=== PATIENT | female | born 1950 | race Caucasian/White ===

== ENCOUNTER → 2016-04-28 | Outpatient (CLI) | payer OTHER ==
[~2016-04-28] MED LIST: ATEN50TA8 PO; BUPR-79 PO; CPR500 PO; KLN1 PO; PANT40TA PO; ZLF50 PO
--- NOTE | 2016-04-28 12:11 | DIAGNOSTIC IMAGING REPORT ---
CHEST CT WITHOUT CONTRAST CT DOSE: 284.18 mGy.cm HISTORY: Pulmonary nodule D80.1 Hypogammaglobulinemia TECHNIQUE: Multiaxial CT images of the chest were performed without contrast. COMPARISON: 10/13/2015 FINDINGS: Unchanged exam compared to the prior study. Nodularity right middle lobe as well as left basilar region. Unchanged. There is no evidence for new interval or progressive process. No significant mediastinal or hilar adenopathy. Stable chronic linear atelectatic change left base. Moderate degenerative changes thoracic spine. No significant upper abdominal adenopathy. Small peripheral cortical cyst of the left hepatic lobe unchanged. IMPRESSION: Unchanging scattered lower lung parenchymal nodularity. No new or interval process. Please refer to below summary of Fleischner criteria recommendations for follow-up of incidental CT nodules (Nithin Lagunas, Guidelines for management of small pulmonary nodules detected on CT scans: A statement from the Fleischner Society, Radiology 237: [phone].) Low Risk Patient: Minimal or no smoking or other known risk factors for malignancy <=4 mm: No follow-up needed. >4-6 mm: Initial follow-up CT at 12 months; if unchanged, no further follow-up. >6-8 mm: Initial follow-up CT at 6-12 months then at 18-24 months if no change. >8 mm: Follow-up CT at \R\3, 9, 24 months, or PET and/or biopsy. High Risk Patient: History of smoking or other known risk factors <=4 mm: Follow-up at 12 months; if unchanged, no further follow-up. >4-6 mm: Initial follow-up CT at 6-12 months then at 18-24 months if no change. >6-8 mm: Initial follow-up CT at 3-6 months then at 9-12 and 24 months if no change. >8 mm: Same as low risk patient. Note: Nodule size measured as average of length and width. Ground glass or partly solid nodules may require longer follow-up to exclude indolent adenocarcinoma. Electronically signed by: Viktor Broderick M.D. 04/28/2016 12:10 PM Dictated Date/Time: 04/28/2016 12:06 PM
== END | disposition home or self-care (01) ==
LOC: C.CTS 10:00
PROVIDERS: ATTEND Internal Medicine Pulmonary Disease
DX: D80.1 Nonfamilial hypogammaglobulinemia (principal); R91.8 Other nonspecific abnormal finding of lung field

== ENCOUNTER → 2017-06-15 | Outpatient (CLI) | payer OTHER ==
--- NOTE | 2017-06-15 10:32 | DIAGNOSTIC IMAGING REPORT ---
(CHEST) THORAX WITHOUT CLINICAL HISTORY: 66 years-old Female presenting with R91.1 Pulmonary nodule Apt [address]. At [facility] [place] on 06/15/17 @ 10am arrive. TECHNIQUE: Multidetector CT imaging of the chest was performed without the use of intravenous contrast. IV contrast: None. A dose lowering technique was used consistent with the principles of ALARA (as low as reasonably achievable). COMPARISON: 04/28/2016. CT DOSE (mGy.cm): The estimated cumulative dose is 408.18 mGy.cm. FINDINGS: Trial Judge topogram: Unremarkable. On soft tissue windows, normal thyroid and thoracic inlet. No axillary, supraclavicular, or mediastinal lymphadenopathy. Evaluation of the tiffany limited without intravenous contrast. Atherosclerosis of the aorta. Normal heart size. Coronary artery calcification. Trace pericardial effusion. No pleural effusion. Focal hypodensity in the anterior left hepatic lobe likely hepatic cyst though indeterminate on this noncontrast examination. On lung windows, bandlike opacities at the lung bases likely atelectasis or scarring. Solid triangular fissural 5 mm nodule in the right middle lobe (series 4 image 176). Triangular solid fissural 2 mm nodule in the left lower lobe (series 4 image 146). Peripheral solid 3 mm nodule in the left lower lobe (series 4 image 179). These nodules are unchanged from prior. No new nodule. Central airways patent. On bone windows, degenerative changes of the spine. IMPRESSION: 1. Multiple solid pulmonary nodules measuring up to 5 mm, which are unchanged from prior exam. No new pulmonary nodule. These have been stable since 2014, consistent with benign etiology, likely unencapsulated pulmonary lymphoid tissue. Electronically signed by: Gerardo Long M.D. 06/15/2017 10:31 AM Dictated Date/Time: 06/15/2017 10:25 AM
== END | disposition home or self-care (01) ==
LOC: C.CTS 10:08
PROVIDERS: ATTEND Physician Assistant
DX: R91.8 Other nonspecific abnormal finding of lung field (principal)